=== PATIENT | male | born 1960 | race Caucasian/White ===

== ENCOUNTER → 2020-05-31 | Outpatient (CLI) | payer MEDICARE, MEDICAID ==
[2020-05-31 13:44] LABS: CALCIUM 9.4 mg/dL (8.5-10.1); CREATININE 1.8 mg/dL (0.7-1.3); GFR 38.8; POTASSIUM 4.4 mmol/L (3.5-5.1)
== END ==
LOC: LAB 12:07
PROVIDERS: ATTEND Internal Medicine Cardiovascular Disease
DX: E78.2 Mixed hyperlipidemia (principal)
CPT/HCPCS: 36415; 80048; 80061

== ENCOUNTER → 2020-09-14 | Outpatient (CLI) | payer MEDICARE, MEDICAID ==
[2020-09-14 10:56] LABS: CALCIUM 8.9 mg/dL (8.5-10.1); CREATININE 1.6 mg/dL (0.7-1.3); GFR 44.5; POTASSIUM 4.4 mmol/L (3.5-5.1)
== END ==
LOC: LAB 10:22
PROVIDERS: ATTEND Internal Medicine Cardiovascular Disease
DX: I10 Essential (primary) hypertension (principal)
CPT/HCPCS: 36415; 80048

== ENCOUNTER → 2021-03-25 | Outpatient (CLI) | payer MEDICARE, MEDICAID ==
[2021-03-25 17:30] LABS: BASO # 0.1 x10^3/uL (0.0-0.2); BASO % 1 % (0-3); EOS # 0.7 x10^3/uL (0.0-0.7); EOS % 8 % (0-3); HEMATOCRIT 24.2 % (39.0-53.0); HEMOGLOBIN 7.7 g/dL (13.0-17.5); LYMPH # 0.9 x10^3/uL (1.0-4.8); LYMPH % 11 % (24-48); MEAN CORPUSCULAR HEMOGLOBIN 32 pg (25-35); MEAN CORPUSCULAR HGB CONC 32 g/dL (31-37); MEAN CORPUSCULAR VOLUME 100 fL (79-100); MONO # 0.6 x10^3/uL (0.0-1.1); MONO % 7 % (0-9); NEUT # 6.4 x10^3uL (1.8-7.7); NEUT % 74 % (31-73); PLATELET COUNT 139 x10^3/uL (140-400); RED BLOOD COUNT 2.43 x10^6/uL (4.30-5.70); RED CELL DISTRIBUTION WIDTH 16.4 % (11.5-14.5); WHITE BLOOD COUNT 8.7 x10^3/uL (4.0-11.0)
== END ==
LOC: LAB 16:55
PROVIDERS: ATTEND Family Medicine
DX: D62 Acute posthemorrhagic anemia (principal)
CPT/HCPCS: 36415; 85025

== ENCOUNTER 2021-04-11 16:02 | Emergency (ER) | payer MEDICARE, MEDICAID ==
[~2021-04-11] VITALS: Ht 177.8 cm; Wt 157.3 kg
--- NOTE | 2021-04-11 16:43 | EKG ---
[address] [address] Test Date: 2021-04-11 Test Time: 16:33:40 Pat Name: MAIRA COLLINS Department: Room: Gender: M Parts Analyst: LYRIC : 1960 Requested By: ROSA QUINTEROS Order Number: [id number] Reading MD: Alexandr Fuentes Measurements Intervals [place] Rate: 63 P: 39 OK: 254 QRS: 6 QRSD: 104 T: 90 QT: 386 QTc: 398 Interpretive Statements SINUS RHYTHM PROLONGED OK INTERVAL T ABNORMALITY IN HIGH LATERAL LEADS ABNORMAL ECG RI6.02 No previous ECG available for comparison Electronically Signed On 04-17-2021 13:02:50 CDT by Alexandr Fuentes
--- NOTE | 2021-04-11 16:58 | RAD ---
Single AP view of the chest. Comparison: None. Indication: Abnormal labs Findings: The heart is enlarged. There is no pneumothorax or effusion. No air space or interstitial disease. Impression: 1. No acute cardiopulmonary process. Electronically signed by: Rico Ventura MD (04/11/2021 4:56 PM) [facility]
[2021-04-11] MEDS: IV NORMAL SALINE 1,000ML 1,000 ML IV ONE (17:01)
[2021-04-11 17:13] LABS: BASO % 1 % (0-3); EOS # 0.6 x10^3/uL (0.0-0.7); EOS % 12 % (0-3); HEMATOCRIT 21.9 % (39.0-53.0); LYMPH # 0.5 x10^3/uL (1.0-4.8); LYMPH % 10 % (24-48); MEAN CORPUSCULAR HEMOGLOBIN 32 pg (25-35); MEAN CORPUSCULAR HGB CONC 32 g/dL (31-37); MEAN CORPUSCULAR VOLUME 100 fL (79-100); MONO # 0.5 x10^3/uL (0.0-1.1); MONO % 10 % (0-9); NEUT # 3.6 x10^3uL (1.8-7.7); NEUT % 68 % (31-73); PLATELET COUNT 108 x10^3/uL (140-400); RED CELL DISTRIBUTION WIDTH 15.9 % (11.5-14.5); WHITE BLOOD COUNT 5.4 x10^3/uL (4.0-11.0)
[2021-04-11 17:20] LABS: ANION GAP 9 (6-14); BLOOD UREA NITROGEN 69 mg/dL (8-26); BUN/CREATININE RATIO 10 (6-20); CALCIUM 8.8 mg/dL (8.5-10.1); CARBON DIOXIDE 22 mmol/L (21-32); CHLORIDE 109 mmol/L (98-107); CREATININE 6.8 mg/dL (0.7-1.3); GFR 8.3; GLUCOSE 106 mg/dL (70-99); POTASSIUM 5.4 mmol/L (3.5-5.1); SODIUM 140 mmol/L (136-145)
[2021-04-11] MEDS ORDERED: POTA10TA5 PO (17:32)
[2021-04-11] MEDS ORDERED: COLC0.6T34 PO (17:32)
[2021-04-11] MEDS ORDERED: CRESTOR40 MG PO (17:32)
[2021-04-11] MEDS ORDERED: CARV25TA2 PO (17:32)
[2021-04-11] MEDS ORDERED: FURO40TA4 PO (17:32)
[2021-04-11] MEDS ORDERED: APIX5TAB3 PO (17:32)
[2021-04-11] MEDS ORDERED: ALLO300T PO (17:32)
[2021-04-11] MEDS ORDERED: LISI20TA18 PO (17:32)
[2021-04-11] MEDS ORDERED: ASPI-630 PO (17:32)
[2021-04-11] MEDS ORDERED: NITR0.4T22 SL (17:32)
[2021-04-11 17:34] LABS: ALBUMIN 3.3 g/dL (3.4-5.0); ALBUMIN/GLOBULIN RATIO 0.8 (1.0-1.7); ALK PHOS 67 U/L (46-116); ALT (SGPT) 13 U/L (16-63); TOTAL BILIRUBIN 0.2 mg/dL (0.2-1.0); TOTAL PROTEIN 7.2 g/dL (6.4-8.2)
[2021-04-11 17:50] LABS: AST (SGOT) < 5 U/L (15-37)
[2021-04-11 19:20] VITALS: BP 103/52
[2021-04-11 19:42] LABS: FECAL OB PT POSITIVE (NEG)
[2021-04-11] MEDS: diphenhydrAMINE 50 MG/ML VIAL IVP ONE (20:01)
[2021-04-11 20:07] LABS: BACTERIA,URINE FEW /HPF (0-FEW); BILIRUBIN,URINE NEG (NEG); CLARITY,URINE CLOUDY; COLOR,URINE YELLOW; GLUCOSE,URINE NEG (NEG); HYALINE CASTS, URINE FEW /HPF; NITRITE,URINE NEG (NEG); RBC,URINE OCC /HPF (0-2); SQUAMOUS EPITHELIAL CELL,UR FEW /LPF; UROBILINOGEN,URINE 0.2 mg/dL (0.2 mg/dL)
[2021-04-11 20:08] LABS: AMORPHOUS SEDIMENT,UR PRESENT /HPF
--- NOTE | 2021-04-11 20:18 | PHYS DOC ---
Past History Additional Past Medical Histor: triple bypass, fluid retention,gout (ROSA QUINTEROS APRN) Past Surgical History: Other Additional Past Surgical Histo: triple bypass, heart scope (ROSA QUINTEROS APRN) Alcohol Use: None (ROSA QUINTEROS APRN) General Adult EDM: Chief Complaint: ABNORMAL LABS HPI: HPI: Patient is a 61-year-old male who presents with abnormal labs. Patient states that he has been seeing his PCP for the last 3 weeks regarding his hemoglobin. Patient has an increase in shortness of breath and weakness. Patient reports he was seen by his PCP earlier today and was sent to the emergency room due to hemoglobin being 7.1. Patient states he has had to have blood transfusion a few years ago but unsure why he was bleeding. (ROSA QUINTEROS APRN) Review of Systems: Review of Systems: Constitutional: Denies fever or chills Eyes: Denies change in visual acuity HENT: Denies nasal congestion or sore throat Respiratory: Reports shortness of breath Cardiovascular: Denies chest pain or edema GI: Denies abdominal pain, nausea, vomiting. Reports black stools : Denies dysuria Musculoskeletal: Denies back pain or joint pain Integument: Denies rash Neurologic: Denies headache, focal weakness or sensory changes Endocrine: Denies polyuria or polydipsia Lymphatic: Denies swollen glands Psychiatric: Denies depression or anxiety (ROSA QUINTEROS APRN) Current Medications: Current Meds: Current Medications Medications (Trade) Dose Ordered Sig/June Start Time Stop Time Status Last Admin Dose Admin Sodium Chloride 1,000 ml @ 1,000 mls/hr 1X ONCE 04/11/21 16:45 04/11/21 17:44 DC 04/11/21 17:01 1,000 MLS/HR (ROSA QUINTEROS APRN) Allergies: Allergies: Allergies Coded Allergies Type Severity Reaction Last Updated Verified Penicillins Allergy Intermediate hives 04/11/21 Yes (ROSA QUINTEROS APRN) Physical Exam: PE: Constitutional: Well developed, well nourished, no acute distress, non-toxic appearance. [] HENT: Normocephalic, atraumatic, bilateral external ears normal, oropharynx moist, no oral exudates, nose normal. [] Eyes: PERRLA, EOMI, conjunctiva normal, no discharge. [] Neck: Normal range of motion, no tenderness, supple, no stridor. [] Cardiovascular:Heart rate regular rhythm, no murmur [] Lungs & Thorax: Bilateral breath sounds clear to auscultation [] Abdomen: Bowel sounds normal, soft, no tenderness, no masses, no pulsatile masses. [] Skin: Warm, dry, no erythema, no rash. [] Back: No tenderness, no CVA tenderness. [] Extremities: No tenderness, no cyanosis, no clubbing, ROM intact, no edema. [] Neurologic: Alert and oriented X 3, normal motor function, normal sensory fun ction, no focal deficits noted. [] Psychologic: Affect normal, judgement normal, mood normal. [] (ROSA QUINTEROS APRN) Current Patient Data: Labs: Laboratory Tests Test 04/11/21 16:42 04/11/21 18:08 White Blood Count 5.4 x10^3/uL (4.0-11.0) Red Blood Count 2.20 x10^6/uL (4.30-5.70) L Hemoglobin 7.0 g/dL (13.0-17.5) *L Hematocrit 21.9 % (39.0-53.0) L Mean Corpuscular Volume 100 fL (79-100) Mean Corpuscular Hemoglobin 32 pg (25-35) Mean Corpuscular Hemoglobin Concent 32 g/dL (31-37) Red Cell Distribution Width 15.9 % (11.5-14.5) H Platelet Count 108 x10^3/uL (140-400) L Neutrophils (%) (Auto) 68 % (31-73) Lymphocytes (%) (Auto) 10 % (24-48) L Monocytes (%) (Auto) 10 % (0-9) H Eosinophils (%) (Auto) 12 % (0-3) H Basophils (%) (Auto) 1 % (0-3) Neutrophils # (Auto) 3.6 x10^3uL (1.8-7.7) Lymphocytes # (Auto) 0.5 x10^3/uL (1.0-4.8) L Monocytes # (Auto) 0.5 x10^3/uL (0.0-1.1) Eosinophils # (Auto) 0.6 x10^3/uL (0.0-0.7) Basophils # (Auto) 0.0 x10^3/uL (0.0-0.2) Sodium Level 140 mmol/L (136-145) Potassium Level 5.4 mmol/L (3.5-5.1) H Chloride Level 109 mmol/L (98-107) H Carbon Dioxide Level 22 mmol/L (21-32) Anion Gap 9 (6-14) Blood Urea Nitrogen 69 mg/dL (8-26) H Creatinine 6.8 mg/dL (0.7-1.3) H Estimated GFR (Cockcroft-Gault) 8.3 BUN/Creatinine Ratio 10 (6-20) Glucose Level 106 mg/dL (70-99) H Calcium Level 8.8 mg/dL (8.5-10.1) Magnesium Level 2.0 mg/dL (1.8-2.4) Total Bilirubin 0.2 mg/dL (0.2-1.0) Aspartate Amino Transferase (AST) < 5 U/L (15-37) L Alanine Aminotransferase (ALT) 13 U/L (16-63) L Alkaline Phosphatase 67 U/L (46-116) Total Protein 7.2 g/dL (6.4-8.2) Albumin 3.3 g/dL (3.4-5.0) L Albumin/Globulin Ratio 0.8 (1.0-1.7) L Prothrombin Time 11.0 SEC (9.4-11.4) Prothrombin Time INR 1.1 (0.9-1.1) SARS-CoV-2 Antigen (Rapid) Negative (NEGATIVE) Vital Signs: Vital Signs Date Time Temp Pulse Resp B/P (MAP) Pulse Ox O2 Delivery O2 Flow Rate FiO2 04/11/21 18:20 62 16 97/48 (64) 95 Room Air 04/11/21 16:18 98.2 (ROSA QUINTEROS APRN) EKG: EKG: [] Sinus rhythm. Prolonged IN interval, T abnormality and high lateral leads, abnormal EKG. Heart rate [address] Linares at 1639 (ROSA QUINTEROS APRN) Radiology/Procedures: Radiology/Procedures: []Single AP view of the chest. Comparison: None. Indication: Abnormal labs Findings: The heart is enlarged. There is no pneumothorax or effusion. No air space or interstitial disease. Impression: 1. No acute cardiopulmonary process. Electronically signed by: Rico Ventura MD (04/11/2021 4:56 PM) [facility] (ROSA QUINTEROS APRN) Heart Score: C/O Chest Pain: No Risk Factors: Risk Factors: DM, Current or recent (<one month) smoker, HTN, HLP, family history of CAD, obesity. Risk Scores: Score 0 - 3: 2.5% MACE over next 6 weeks - Discharge Home Score 4 - 6: 20.3% MACE over next 6 weeks - Admit for Clinical Observation Score 7 - 10: 72.7% MACE over next 6 weeks - Early Invasive Strategies (ROSA QUINTEROS APRN) Course & Med Decision Making: Course & Med Decision Making Pertinent Labs and Imaging studies reviewed. (See chart for details) [] 61-year-old male who was sent in from Dr. Whaley's office for abnormal labs. Patient reports shortness of breath, weakness, black stools for the last couple of weeks. Patient states a few years ago he had similar symptoms and was diagnosed with a GI bleed. Patient is currently on Eliquis, which Dr. Whaley recently stopped. Blood pressure on arrival was 86/45. Blood pressure 100/s after liter bolus normal saline. Critical hemoglobin at 7.0, hematocrit 21.9. Creatinine 6.8, BUN 69. Potassium, 5.4. positive stool occult. Rapid Covid was negative. Type and screen and 1 unit PRBC ordered. 5 units of insulin and 1 amp of D50 g iven to treat hyperkalemia. Discussed results with patient. Informed patient that he would most likely need to be transferred to [facility] for higher level of care. Spoke with CALEB Santillan at [facility] who will accept patient for acute renal failure, GI bleed and hyperkalemia. (ROSA QUINTEROS APRN) Course & Med Decision Making I was the Attending physician on the above date of service of this patient. This patient was evaluated, examined, treated, and dispositioned from the emergency department by the mid-level practitioner. I reviewed ER case and recommended against admission to [facility] and transfer to outside facility with nephrology Electronically signed, Angy Mcmahan DO (ANGY MCMAHAN DO) Danelle Disclaimer: Danelle Disclaimer: This electronic medical record was generated, in whole or in part, using a voice recognition dictation system. (ROSA QUINTEROS APRN) Departure Departure: Impression: Primary Impression: GI bleed Qualified Codes: K92.2 - Gastrointestinal hemorrhage, unspecified Additional Impressions: Acute renal failure Qualified Codes: N17.9 - Acute kidney failure, unspecified Hyperkalemia Disposition: 02 [facility] Condition: STABLE Referrals: KHUSHBU TREADWELL MD (PCP) ROSA QUINTEROS APRN Apr 11, 2021 20:18 ANGY MCMAHAN DO Apr 13, 2021 20:00
[2021-04-11] MEDS: INSULIN REGULAR 100 UNIT/ML 3ML VIAL. IV ONE (20:46)
[2021-04-11] MEDS: DEXTROSE 50% 25 GM / 50ML DISP.SYRIN. IV ONE (20:46)
== END 2021-04-11 22:14 | disposition short-term general hospital (02) ==
LOC: ER 16:02
DX: K92.2 Gastrointestinal hemorrhage, unspecified (principal); E87.5 Hyperkalemia; N17.9 Acute kidney failure, unspecified; Z20.822 Contact with and (suspected) exposure to COVID-19
CPT/HCPCS: 36415; 71045; 80053; 81001; 82274; 83735; 85025; 85610; 86850; 86900; 86901; 87426; 93005; 96361; 96374; 96375; 99285; J1200; J1815; J7030; U0003; C9803

== ENCOUNTER 2021-12-06 09:39 | Emergency (ER) | payer MEDICARE, MEDICAID ==
[~2021-12-06] VITALS: Ht 177.8 cm; Wt 163.6 kg
[~2021-12-06 09:39] MED LIST: ALLO300T PO; APIX5TAB3 PO; ASPI-630 PO; CARV25TA2 PO; COLC0.6T34 PO; CRESTOR40 MG PO; FURO40TA4 PO; LISI20TA18 PO; NITR0.4T22 SL; POTA-112 PO
[2021-12-06 10:11] LABS: BASO # 0.1 x10^3/uL (0.0-0.2); BASO % 1 % (0-3); EOS # 0.8 x10^3/uL (0.0-0.7); EOS % 9 % (0-3); HEMATOCRIT 37.4 % (39.0-53.0); HEMOGLOBIN 12.2 g/dL (13.0-17.5); LYMPH # 0.9 x10^3/uL (1.0-4.8); LYMPH % 10 % (24-48); MEAN CORPUSCULAR HEMOGLOBIN 30 pg (25-35); MEAN CORPUSCULAR HGB CONC 33 g/dL (31-37); MEAN CORPUSCULAR VOLUME 91 fL (79-100); MONO # 0.8 x10^3/uL (0.0-1.1); MONO % 9 % (0-9); NEUT # 6.3 x10^3uL (1.8-7.7); NEUT % 72 % (31-73); PLATELET COUNT 142 x10^3/uL (140-400); RED BLOOD COUNT 4.11 x10^6/uL (4.30-5.70); RED CELL DISTRIBUTION WIDTH 15.8 % (11.5-14.5); WHITE BLOOD COUNT 8.8 x10^3/uL (4.0-11.0)
[2021-12-06 10:20] LABS: CALCIUM 9.1 mg/dL (8.5-10.1); CREATININE 1.5 mg/dL (0.7-1.3); GFR 47.7; POTASSIUM 4.3 mmol/L (3.5-5.1)
[2021-12-06] MEDS: KETOROLAC 15 MG/ML VIAL. IVP ONE (10:20)
[2021-12-06 10:32] LABS: ALBUMIN 3.4 g/dL (3.4-5.0); TOTAL BILIRUBIN 0.5 mg/dL (0.2-1.0); TOTAL PROTEIN 6.8 g/dL (6.4-8.2)
[2021-12-06] MEDS ORDERED: HYDROmorphone PF 2 MG/ML VIAL ONE (10:42)
--- NOTE | 2021-12-06 10:45 | RAD ---
CT abdomen pelvis without contrast. HISTORY: Lower abdominal pain CT abdomen pelvis was done without contrast. Lung bases are clear. There is no effusion. Liver is nor mal in appearance. There is no calcified gallstone or gallbladder wall thickening. Spleen is unremark able. Adrenal glands are normal. Pancreas is normal. There are multiple bilateral renal cysts. There is no hydronephrosis. There is vascular calcification. There is an infrarenal abdominal aortic aneury sm that measures 6.4 x 8.2 cm. There is no acute rupture. The aneurysm continues into the iliac arter ies. There is a 9.8 x 8.8 cm right common iliac artery aneurysm. There is a 8.9 x 8 cm left common il iac artery aneurysm. There is indistinctness along the left iliac artery aneurysm, inflammation or he morrhage could have this pattern. There is diverticulosis without diverticulitis. There is no free ai r. There is no free fluid. There is degenerative change in the lumbar spine. There is lower lumbar fa cet arthritis. There is no acute lumbar fracture. IMPRESSION: 1. Large abdominal aortic aneurysm. 2. Large bilateral iliac artery aneurysms. 3. Inflammation or small amount of hemorrhage surrounding the left iliac artery aneurysm, a pending r upture is possible. 4. Bilateral multiple renal cysts. FOR INTERNAL CODING PURPOSES Critical result: Findings discussed with RAMAKRISHNA CASAS MD at 12/06/2021 10:40 AM. RESULT CODE: (C) PQRS Compliance Statement: One or more of the following individualized dose reduction techniques were utilized for this examinat ion: 1. Automated exposure control 2. Adjustment of the mA and/or kV according to patient size 3. Use of iterative reconstruction technique Electronically signed by: Gerard Horan MD (12/06/2021 10:42 AM) [id number]
[2021-12-06] MEDS ORDERED: HYDROmorphone PF 2 MG/ML VIAL IM ONE (11:20)
[2021-12-06] MEDS: HYDROmorphone PF 1 MG/ML DISP.SYRIN IVP ONE (11:25)
[2021-12-06 11:33] VITALS: BP 91/70
--- NOTE | 2021-12-06 12:19 | PHYS DOC ---
Past History Additional Past Medical Histor: triple bypass, fluid retention,gout Past Surgical History: Other Additional Past Surgical Histo: triple bypass, heart scope Alcohol Use: None General Adult EDM: Chief Complaint: ABDOMINAL PAIN HPI: HPI: Patient is a 61-year-old male coming in from home via EMS for low abdominal pain. Patient states the pain started last night but is gotten more severe. Patient states that he thinks he needs to have a bowel movement and get "flushed out". Patient denies any past surgical history. Denies any hematuria. Patient states that he takes a stool softener daily due to chronic constipation. Patient states he has had multiple colonoscopies and has had some polyps removed but no other abnormalities. Does not take any blood thinners. Review of Systems: Review of Systems: All other systems within normal limits except for as noted in the HPI Current Medications: Current Meds: Current Medications Medications (Trade) Dose Ordered Sig/June Start Time Stop Time Status Last Admin Dose Admin Hydromorphone HCl (Dilaudid) 2 mg STK-MED ONCE 12/06/21 10:42 12/06/21 10:42 DC Ketorolac Tromethamine (Toradol 15mg Vial) 30 mg 1X ONCE 12/06/21 10:15 12/06/21 10:16 DC 12/06/21 10:20 30 MG Allergies: Allergies: Allergies Coded Allergies Type Severity Reaction Last Updated Verified Penicillins Allergy Intermediate hives 12/06/21 Yes Physical Exam: PE: Constitutional: Well developed, well nourished, no acute distress, non-toxic appearance. [] HENT: Normocephalic, atraumatic, bilateral external ears normal, nose normal. [] Eyes: PERRLA, conjunctiva normal, no discharge. [] Neck: No rigidity, supple, no stridor. [] Cardiovascular: Regular rate and rhythm, brisk cap refill [] Lungs & Thorax: Non labored symmetric respirations, no tachypnea or respiratory distress [] Abdomen: Soft, nondistended, low abdominal tenderness, obese Skin: Warm, dry, no erythema, no rash. [] Back: Unremarkable Extremities: No deformities, range of motion grossly intact, no lower extremity edema [] Neurologic: Alert and oriented X 3, no focal deficits noted. [] Psychologic: Affect normal, judgement normal, mood normal. [] Current Patient Data: Labs: Laboratory Tests Test 12/06/21 09:55 White Blood Count 8.8 x10^3/uL (4.0-11.0) Red Blood Count 4.11 x10^6/uL (4.30-5.70) L Hemoglobin 12.2 g/dL (13.0-17.5) L Hematocrit 37.4 % (39.0-53.0) L Mean Corpuscular Volume 91 fL (79-100) Mean Corpuscular Hemoglobin 30 pg (25-35) Mean Corpuscular Hemoglobin Concent 33 g/dL (31-37) Red Cell Distribution Width 15.8 % (11.5-14.5) H Platelet Count 142 x10^3/uL (140-400) Neutrophils (%) (Auto) 72 % (31-73) Lymphocytes (%) (Auto) 10 % (24-48) L Monocytes (%) (Auto) 9 % (0-9) Eosinophils (%) (Auto) 9 % (0-3) H Basophils (%) (Auto) 1 % (0-3) Neutrophils # (Auto) 6.3 x10^3uL (1.8-7.7) Lymphocytes # (Auto) 0.9 x10^3/uL (1.0-4.8) L Monocytes # (Auto) 0.8 x10^3/uL (0.0-1.1) Eosinophils # (Auto) 0.8 x10^3/uL (0.0-0.7) H Basophils # (Auto) 0.1 x10^3/uL (0.0-0.2) Sodium Level 142 mmol/L (136-145) Potassium Level 4.3 mmol/L (3.5-5.1) Chloride Level 104 mmol/L (98-107) Carbon Dioxide Level 31 mmol/L (21-32) Anion Gap 7 (6-14) Blood Urea Nitrogen 19 mg/dL (8-26) Creatinine 1.5 mg/dL (0.7-1.3) H Estimated GFR (Cockcroft-Gault) 47.7 BUN/Creatinine Ratio 13 (6-20) Glucose Level 105 mg/dL (70-99) H Calcium Level 9.1 mg/dL (8.5-10.1) Total Bilirubin 0.5 mg/dL (0.2-1.0) Aspartate Amino Transferase (AST) 10 U/L (15-37) L Alanine Aminotransferase (ALT) 22 U/L (16-63) Alkaline Phosphatase 70 U/L (46-116) Total Protein 6.8 g/dL (6.4-8.2) Albumin 3.4 g/dL (3.4-5.0) Albumin/Globulin Ratio 1.0 (1.0-1.7) Lipase 111 U/L (73-393) Vital Signs: Vital Signs Date Time Temp Pulse Resp B/P (MAP) Pulse Ox O2 Delivery O2 Flow Rate FiO2 12/06/21 10:44 73 18 69/36 (47) 93 Nasal Cannula 3.0 12/06/21 09:40 98.4 EKG: EKG: [] Radiology/Procedures: Radiology/Procedures: [address] [address] IMAGING REPORT Signed PATIENT: MAIRA COLLINS ACCOUNT: [id number] : 1960 LOCATION: ER AGE: 61 SEX: M EXAM STATUS: REG ER ORD. PHYSICIAN: RAMAKRISHNA CASAS MD REASON: low abd pain PROCEDURE: CT ABDOMEN PELVIS WO CONTRAST CT abdomen pelvis without contrast. HISTORY: Lower abdominal pain CT abdomen pelvis was done without contrast. Lung bases are clear. There is no effusion. Liver is normal in appearance. There is no calcified gallstone or gallbladder wall thickening. Spleen is unremarkable. Adrenal glands are normal. Pancreas is normal. There are multiple bilateral renal cysts. There is no hydronephrosis. There is vascular calcification. There is an infrarenal abdominal aortic aneurysm that measures 6.4 x 8.2 cm. There is no acute rupture. The aneurysm continues into the iliac arteries. There is a 9.8 x 8.8 cm right common iliac artery aneurysm. There is a 8.9 x 8 cm left common iliac artery aneurysm. There is indistinctness along the left iliac artery aneurysm, inflammation or hemorrhage could have this pattern. There is diverticulosis without diverticulitis. There is no free air. There is no free fluid. There is degenerative change in the lumbar spine. There is lower lumbar facet arthritis. There is no acute lumbar fracture. IMPRESSION: 1. Large abdominal aortic aneurysm. 2. Large bilateral iliac artery aneurysms. 3. Inflammation or small amount of hemorrhage surrounding the left iliac artery aneurysm, a pending rupture is possible. 4. Bilateral multiple renal cysts. FOR INTERNAL CODING PURPOSES Critical result: Findings discussed with RAMAKRISHNA CASAS MD at 12/06/2021 10:40 AM. RESULT CODE: (C) PQRS Compliance Statement: One or more of the following individualized dose reduction techniques were utilized for this examination: 1. Automated exposure control 2. Adjustment of the mA and/or kV according to patient size 3. Use of iterative reconstruction technique Electronically signed by: Gerard Horan MD (12/06/2021 10:42 AM) [id number] DICTATED AND SIGNED BY: GERARD HORAN MD DATE: 12/06/21 1034 CC: RAMAKRISHNA CASAS MD; KHUSHBU TREADWELL MD ~ [] Heart Score: C/O Chest Pain: No Risk Factors: Risk Factors: DM, Current or recent (<one month) smoker, HTN, HLP, family history of CAD, obesity. Risk Scores: Score 0 - 3: 2.5% MACE over next 6 weeks - Discharge Home Score 4 - 6: 20.3% MACE over next 6 weeks - Admit for Clinical Observation Score 7 - 10: 72.7% MACE over next 6 weeks - Early Invasive Strategies Course & Med Decision Making: Course & Med Decision Making Pertinent Labs and Imaging studies reviewed. (See chart for details) Patient initially hypertensive. When when getting ready go CT patient had increasing pain. On return patient was pale and weak. Blood pressure was hypotensive whenever he checked. Patient placed in Trendelenburg and NS bolus was initiated. Called by radiologist to report ruptured left iliac aneurysm, patient given 4 units of uncrossed blood while making contact with several tertiary care centers. Patient was eventually accepted to [facility] by Dr. Chatterjee, transported via [facility] in improved condition. Patient's blood pressure on discharge was 91/70. Patient sent with a an extra bag of IV fluids. [] Total critical care time: 80 The time involved in the performance of separately reportable/billable procedures was not counted toward critical care time. Due to a high probability of clinically significant, life-threatening dete rioration the patient required a high level of care to intervene emergently and I personally spent this critical time directly and personally managing the patient. The critical care time included obtaining a history, examination of the patient, assessment of vital signs, ordering and review of studies, arranging urgent treatment with development of a management plan, evaluation of patient's response to treatment, frequent reassessment, and discussions with other providers and/or family members. Dragon Disclaimer: Dragon Disclaimer: This electronic medical record was generated, in whole or in part, using a voice recognition dictation system. Departure Departure: Impression: Primary Impression: Ruptured aneurysm of common iliac artery Disposition: [facility] Condition: CRITICAL Referrals: KHUSHBU TREADWELL MD (PCP) RAMAKRISHNA CASAS MD December 06, 2021 12:19
[2021-12-06 12:46] LABS: INFLUENZA A PATIENT NEGATIVE (NEGATIVE); INFLUENZA B PATIENT NEGATIVE (NEGATIVE)
== END 2021-12-06 11:45 | disposition short-term general hospital (02) ==
LOC: ER 09:39
DX: U07.1 COVID-19 (principal); I72.3 Aneurysm of iliac artery; Z88.0 Allergy status to penicillin
CPT/HCPCS: 36415; 36430; 74176; 80053; 83690; 85025; 86850; 86900; 86901; 86920; 87428; 96374; 96375; 99285; C9803; J1170; J1885; P9016; U0003